=== PATIENT | female | born 1940 | race Caucasian/White ===

== ENCOUNTER 2023-11-24 06:25 | Emergency (ER) | payer OTHER, MEDICARE ==
[2023-11-24 06:39] VITALS: BP 129/60; PULSE 80; RESP 18; TEMP 97.9; BMI 28.8
[2023-11-24] MEDS: SODIUM CHLORIDE 500 ML IV STA (08:07)
[2023-11-24 08:26] LABS: BASO % 0.8 % (0-2.0); EOS % 4.2 % (0-4.5); HEMATOCRIT 32.4 % (32.4-45.2); HEMOGLOBIN 10.9 GM/dL (10.7-15.3); LYMPH % 27.7 % (8-40); MCH 32.3 pg (25.7-33.7); MCHC 33.6 g/dl (32.0-36.0); MEAN CELL VOLUME 96.2 fl (80-96); MEAN PLT VOLUME 8.3 fl (7.5-11.1); MONO % 10.1 % (3.8-10.2); NEUT % 57.2 % (42.8-82.8); PLATELET COUNT 241 10^3/uL (134-434); RBC 3.37 M/mm3 (3.60-5.2); RDW 13.6 % (11.6-15.6); WHITE BLOOD COUNT 6.6 K/mm3 (4.0-10.0)
[2023-11-24 08:45] LABS: POTASSIUM 5.1 mmol/L (3.5-5.1)
[2023-11-24 08:47] LABS: CALCIUM 9.1 mg/dL (8.5-10.1)
[2023-11-24 08:48] LABS: ALBUMIN 3.6 g/dl (3.4-5.0); BLOOD UREA NITROGEN 54.8 mg/dL (7-18)
[2023-11-24 08:51] LABS: CREATININE 3.3 mg/dL (0.55-1.3)
[2023-11-24 08:52] LABS: BILIRUBIN,TOTAL 0.5 mg/dL (0.2-1); TOT PROT 7.6 g/dl (6.4-8.2)
[2023-11-24 10:29] LABS: EPI CELLS 21 /uL (0-25.1); HYALINE CASTS 0 /uL (0-3.1); URINE APPEARANCE CLEAR; URINE BACTERIA 178 /uL (0-1359); URINE BILIRUBIN NEGATIVE (NEGATIVE); URINE COLOR YELLOW; URINE GLUCOSE (UA) NEGATIVE (NEGATIVE); URINE KETONE NEGATIVE (NEGATIVE); URINE LEUK ESTERASE TRACE (NEGATIVE); URINE NITRITE NEGATIVE (NEGATIVE); URINE PROTEIN 2+ (NEGATIVE); URINE RBC 9 /uL (0-23.9); URINE WBC 26 /uL (0-25.8)
== END 2023-11-24 10:55 | disposition home or self-care (01) ==
LOC: JER 06:25
DX: R52 Pain, unspecified (principal); Z20.822 Contact with and (suspected) exposure to COVID-19
CPT/HCPCS: 0241U-QW; 36415; 76775-TC; 80053; 81003; 85025; 87086; 99284-25

== ENCOUNTER 2023-12-07 23:10 | Emergency (ER) | payer OTHER, MEDICARE ==
[2023-12-07 23:19] VITALS: BP 179/83; PULSE 87; RESP 18; TEMP 98; BMI 29.6
[2023-12-08 00:51] LABS: BASO % 0.9 % (0-2.0); EOS % 3.6 % (0-4.5); HEMATOCRIT 30.3 % (32.4-45.2); HEMOGLOBIN 10.1 GM/dL (10.7-15.3); LYMPH % 27.6 % (8-40); MCH 32.2 pg (25.7-33.7); MCHC 33.2 g/dl (32.0-36.0); MEAN CELL VOLUME 96.9 fl (80-96); MEAN PLT VOLUME 7.9 fl (7.5-11.1); MONO % 12.7 % (3.8-10.2); NEUT % 55.2 % (42.8-82.8); PLATELET COUNT 248 10^3/uL (134-434); RBC 3.12 M/mm3 (3.60-5.2); RDW 13.3 % (11.6-15.6); WHITE BLOOD COUNT 7.5 K/mm3 (4.0-10.0)
[2023-12-08 01:11] LABS: POTASSIUM 5.3 mmol/L (3.5-5.1)
[2023-12-08 01:13] LABS: CALCIUM 8.6 mg/dL (8.5-10.1)
[2023-12-08 01:14] LABS: ALBUMIN 3.3 g/dl (3.4-5.0); BLOOD UREA NITROGEN 39.6 mg/dL (7-18)
[2023-12-08 01:17] LABS: CREATININE 2.9 mg/dL (0.55-1.3)
[2023-12-08 01:18] LABS: BILIRUBIN,TOTAL 0.3 mg/dL (0.2-1); TOT PROT 6.9 g/dl (6.4-8.2)
== END 2023-12-08 01:56 | disposition home or self-care (01) ==
LOC: JER 23:10
DX: K92.1 Melena (principal)
CPT/HCPCS: 36415; 80053; 82272; 85025; 99283-25

== ENCOUNTER 2023-12-19 17:55 | Emergency (ER) | payer OTHER, MEDICARE ==
[2023-12-19 18:00] VITALS: BP 164/77; PULSE 94; RESP 18; TEMP 97.5; BMI 29.2
[2023-12-19 18:53] LABS: BASO % 0.9 % (0-2.0); EOS % 1.5 % (0-4.5); HEMOGLOBIN 10.2 GM/dL (10.7-15.3); LYMPH % 21.7 % (8-40); MCH 31.5 pg (25.7-33.7); MCHC 32.9 g/dl (32.0-36.0); MEAN CELL VOLUME 95.8 fl (80-96); MEAN PLT VOLUME 7.7 fl (7.5-11.1); MONO % 8.3 % (3.8-10.2); NEUT % 67.6 % (42.8-82.8); PLATELET COUNT 238 10^3/uL (134-434); RBC 3.24 M/mm3 (3.60-5.2); RDW 13.3 % (11.6-15.6); WHITE BLOOD COUNT 8.7 K/mm3 (4.0-10.0)
[2023-12-19 18:55] LABS: EPI CELLS 8 /uL (0-25.1); HYALINE CASTS 0 /uL (0-3.1); PH,URINE 6.5 (5.0-8.0); URINE APPEARANCE CLEAR; URINE BACTERIA 281 /uL (0-1359); URINE BILIRUBIN NEGATIVE (NEGATIVE); URINE COLOR YELLOW; URINE GLUCOSE (UA) NEGATIVE (NEGATIVE); URINE KETONE NEGATIVE (NEGATIVE); URINE LEUK ESTERASE NEGATIVE (NEGATIVE); URINE NITRITE NEGATIVE (NEGATIVE); URINE PROTEIN 3+ (NEGATIVE); URINE RBC 5 /uL (0-23.9); URINE UROBILINOGEN 0.2 mg/dL (0.2-1.0); URINE WBC 15 /uL (0-25.8)
[2023-12-19 19:02] LABS: PROTHROMBIN TIME (PATIENT) 11.3 SEC (9.7-13.0)
[2023-12-19 19:05] LABS: ACTIVATED PTT 21.1 SECONDS (25.2-36.5)
[2023-12-19 19:14] LABS: POTASSIUM 4.5 mmol/L (3.5-5.1)
[2023-12-19 19:17] LABS: ALBUMIN 3.5 g/dl (3.4-5.0); BLOOD UREA NITROGEN 40.4 mg/dL (7-18); CALCIUM 8.7 mg/dL (8.5-10.1); MAGNESIUM 2.1 mg/dL (1.8-2.4)
[2023-12-19 19:19] LABS: CREATININE 2.4 mg/dL (0.55-1.3)
[2023-12-19 19:22] LABS: BILIRUBIN,TOTAL 0.4 mg/dL (0.2-1); TOT PROT 7.1 g/dl (6.4-8.2)
[2023-12-19] MEDS ORDERED: LIDOCAINE 5% TOPICAL PATCH ONE (20:18)
[2023-12-19] MEDS ORDERED: ACETAMINOPHEN INJECTION 100 ML IVPB ONE (20:18)
[2023-12-19] MEDS: ACETAMINOPHEN 1000 MG/100 ML BAG IVPB ONE (20:32)
[2023-12-19] MEDS: LIDOCAINE 5% TOPICAL PATCH TP ONE (20:32)
[2023-12-19] MEDS ORDERED: LIDOCAINE PATCH REMOVAL MC SCH (22:00)
== END 2023-12-19 21:58 | disposition left against medical advice (07) ==
LOC: JER 17:55
DX: R10.9 Unspecified abdominal pain (principal); K80.20 Calculus of gallbladder without cholecystitis without obstruction; M79.89 Other specified soft tissue disorders
CPT/HCPCS: 36415; 71046-TC-FY; 74176-TC; 80053; 81003; 83735; 83880; 84484; 85025; 85610; 85730; 87086; 93005; 93010; 93970-TC; 99285-25

== ENCOUNTER 2024-09-25 17:51 | Emergency (ER) | payer OTHER, MEDICARE ==
[2024-09-25 18:06] VITALS: BP 175/84; PULSE 87; RESP 16; TEMP 98.2; BMI 28.8
[2024-09-25 19:58] LABS: EPI CELLS 16 /uL (0-25.1); HYALINE CASTS 0 /uL (0-3.1); PH,URINE 6.5 (5.0-8.0); URINE APPEARANCE CLOUDY; URINE BACTERIA >9,000 /uL (0-1359); URINE BILIRUBIN NEGATIVE (NEGATIVE); URINE COLOR YELLOW; URINE GLUCOSE (UA) NEGATIVE (NEGATIVE); URINE KETONE NEGATIVE (NEGATIVE); URINE LEUK ESTERASE TRACE (NEGATIVE); URINE NITRITE NEGATIVE (NEGATIVE); URINE PROTEIN 3+ (NEGATIVE); URINE RBC 23 /uL (0-23.9); URINE UROBILINOGEN 0.2 mg/dL (0.2-1.0); URINE WBC 127 /uL (0-25.8)
[2024-09-25 20:48] LABS: HEMATOCRIT 29.1 % (34.1-44.9); HEMOGLOBIN 9.3 g/dL (11.2-15.7); MEAN CELL VOLUME 105.4 fl (79.4-94.8); MEAN PLT VOLUME 10.4 fl (9.4-12.3); PLATELET COUNT 230 x10^3/uL (182-369); RDW 14.3 % (12.5-17.0)
[2024-09-25 21:14] LABS: POTASSIUM 5.4 mmol/L (3.5-5.1)
[2024-09-25 21:16] LABS: CALCIUM 8.3 mg/dL (8.5-10.1)
[2024-09-25 21:17] LABS: ALBUMIN 2.9 g/dl (3.4-5.0); BLOOD UREA NITROGEN 53.1 mg/dL (7-18)
[2024-09-25 21:20] LABS: CREATININE 3.5 mg/dL (0.55-1.3)
[2024-09-25 21:21] LABS: BILIRUBIN,TOTAL 0.3 mg/dL (0.2-1); TOT PROT 6.3 g/dl (6.4-8.2)
[2024-09-25] MEDS ORDERED: DOXYCYCLINE HYCLATE 100 MG TABLET PO ONE (21:56)
[2024-09-25] MEDS: DOXYCYCLINE HYCLATE 100 MG CAPSULE PO ONE (21:59)
== END 2024-09-25 21:59 | disposition home or self-care (01) ==
LOC: JER 17:51
DX: N39.0 Urinary tract infection, site not specified (principal); K64.9 Unspecified hemorrhoids
CPT/HCPCS: 36415; 80053; 81003; 82272; 85027; 87086; 87186; 99283-25

== ENCOUNTER 2024-11-28 10:51 | Emergency (ER) | payer OTHER, MEDICARE ==
[2024-11-28 10:59] VITALS: RESP 20; TEMP 97.9; BMI 29.6
[2024-11-28 12:57] VITALS: BP 141/68; PULSE 69
== END 2024-11-28 13:19 | disposition home or self-care (01) ==
LOC: JER 10:51
DX: S70.12XA Contusion of left thigh, initial encounter (principal); M25.562 Pain in left knee; M25.462 Effusion, left knee; W01.198A Fall on same level from slipping, tripping and stumbling with subsequent striking against other object, initial encounter; Y92.009 Unspecified place in unspecified non-institutional (private) residence as the place of occurrence of the external cause
CPT/HCPCS: 73560-TC-LT-FY; 99283-25